=== PATIENT | female | born 1990 | race Caucasian/White ===

== ENCOUNTER 2017-10-05 13:39 | Emergency (ER) | payer OTHER ==
[2017-10-05 13:44] VITALS: BP 119/79; PULSE 80; TEMP 98.1; BMI 25.7
--- NOTE | 2017-10-05 15:35 | PDOC ---
Attending Attestation - Resident Resident Name: MarceloDanie - ED Attending Attestation I have performed the following: I have examined & evaluated the patient, The case was reviewed & discussed with the resident, I agree w/resident's findings & plan, Exceptions are as noted - HPI HPI: 10/05/17 15:50 27yo F 9+3 p/w suprapubic abd pain since yesterday morning. Pain is 7/10, a/w nausea but no emesis. No vaginal bleeding or DC. Denies dysuria, hematuria, frequency. Denies fevers/chills. Pt is followed by the [facility] where she had a normal US 4 weeks ago by her report. Denies chest pain, shortness of breath, palpitations. Denies flank pain. Denies lower extremity edema, headaches. - Physicial Exam PE: 10/05/17 16:04 GENERAL: Awake, alert, and fully oriented, in no acute distress HEAD: No signs of trauma EYES: PERRLA, EOMI, sclera anicteric, conjunctiva clear ENT: Auricles normal inspection, hearing grossly normal, nares patent, oropharynx clear without exudates. Moist mucosa NECK: Normal ROM, supple, no lymphadenopathy, JVD, or masses LUNGS: Breath sounds equal, clear to auscultation bilaterally. No wheezes, and no crackles HEART: Regular rate and rhythm, normal S1 and S2, no murmurs, rubs or gallops ABDOMEN: mild suprapubic ttp, normoactive bowel sounds. No guarding, no rebound. No masses COMPANION: agree with resident exam, fundus palpable below pubic symphasis. EXTREMITIES: Normal range of motion, no edema. No clubbing or cyanosis. No cords, erythema, or tenderness NEUROLOGICAL: Normal speech, cranial nerves intact, negative pronator drift, 5/ 5 strength in all 4 extremities, normal sensation to light touch in all 4 extremities, normal cerebellar exam, normal gait, normal reflexes and tone SKIN: Warm, Dry, normal turgor, no rashes or lesions noted. - Medical Decision Making 10/05/17 16:05 27-year-old female 9 weeks presents with suprapubic abdominal pain. Vitals are unremarkable. Likely threatened given pain however patient with no vaginal bleeding. Will obtain an ultrasound to evaluate for . Symptoms could also possibly be a UTI, will check urinalysis and urine culture. 10/05/17 16:43 Patient has been signed out to the oncoming evening attending for further evaluation and discharge.
--- NOTE | 2017-10-05 15:44 | PDOC ---
History of Present Illness - General Chief Complaint: Pain Stated Complaint: 9WKS,ABD PAIN Time Seen by Provider: 10/05/17 15:14 History Source: Patient - History of Present Illness Initial Comments: 10/05/17 15:38 27F A1 9W3D (last period July 31) presents with 7/10 non-stop cramping, stabbing pain since yesterday morning. No bloody discharge. Had an appointment 2 weeks ago at the ER in [facility] where she had bloodwork done due to hyperemesis gravidarum and another visit 4 weeks ago where an intrauterine was identified by ultrasound at the [facility]. Nausea for the past week but no vomiting for the past couple days. 10/05/17 16:17 10/05/17 16:48 Past History - Past Medical History Allergies/Adverse Reactions: Allergies Allergy/AdvReac Type Severity Reaction Status Date / Time No Known Allergies Allergy Verified 10/05/17 13:42 Home Medications: Ambulatory Orders NK [No Known Home Medication] 10/05/17 COPD: No - Reproductive History Is Patient Now?: No (#): 3 Para: 1 Cervical CA: No Dysfunctional Uterine Bleeding: No Ectopic : No Endometrial CA: No Polycystic Ovaries: No Therapeutic (s) & number: Yes (1) Tubal Ligation: No - Suicide/Smoking/Psychosocial Hx Smoking History: Never smoked Information on smoking cessation initiated: No Hx Alcohol Use: No Drug/Substance Use Hx: No Substance Use Type: None Review of Systems - Review of Systems Able to Perform ROS?: Yes Is the patient limited Indian proficient: Yes Constitutional: No: Symptoms Reported HEENTM: No: Symptoms Reported Respiratory: No: Symptoms reported Cardiac (ROS): No: Symptoms Reported ABD/GI: Yes: See HPI. No: Tarry Stools Musculoskeletal: No: Symptoms Reported Integumentary: No: Symptoms Reported Neurological: No: Symptoms reported Endocrine: No: Symptoms Reported Hematologic/Lymphatic: No: Symptoms Reported All Other Systems: Reviewed and Negative *Physical Exam - Vital Signs Last Vital Signs Temp Pulse Resp BP Pulse Ox 98.1 F 80 18 119/79 100 10/05/17 13:42 10/05/17 13:42 10/05/17 13:42 10/05/17 13:42 10/05/17 13:42 - Physical Exam General Appearance: Yes: Nourished, Appropriately Dressed, Mild Distress HEENT: positive: EOMI, DEL, Normal ENT Inspection Neck: negative: Tender Respiratory/Chest: positive: Lungs Clear, Normal Breath Sounds. negative: Chest Tender Cardiovascular: positive: Regular Rhythm, Regular Rate, S1, S2 Female Pelvic Exam: positive: normal external exam, cervical os closed, normal adnexa, normal size ovaries, discharge (physiological leukorrhea, uterine tenderness). negative: adnexal tenderness, vaginal bleeding Gastrointestinal/Abdominal: positive: Tender (suprapibic). negative: Normal Bowel Sounds Musculoskeletal: positive: Normal Inspection Extremity: positive: Normal Capillary Refill, Normal Inspection Integumentary: positive: Normal Color, Dry, Warm Neurologic: positive: Fully Oriented, Alert, Normal Mood/Affect, Motor Strength 03/19 ED Treatment Course - LABORATORY CBC & Chemistry Diagram: 10/05/17 15:58 10/05/17 15:58 Medical Decision Making - Medical Decision Making 10/05/17 16:48 27F A1 9W3D (last period July 31) presents with 7/10 non-stop cramping, stabbing pain suprapubic pain since yesterday morning BetaHcg drawn, will assess with transvaginal ultrasound. Pain controled with Tylenol. *DC/Admit/Observation/Transfer Diagnosis at time of Disposition: demise - Discharge Dispostion Disposition: HOME Admit: No - Referrals - Patient Instructions Printed Discharge Instructions: DI for Miscarriage, Dealing With Miscarriage Additional Instructions: Please follow up with your OBGYN clinic at [facility] as soon as possible Come back to the Emergency Room for any new, worsening or concerning symptom like fever, discharge of pus Print Language: PALAUAN - Post Discharge Activity
[2017-10-05 16:14] LABS: URINE APPEARANCE SLCLOUDY; URINE BILIRUBIN NEGATIVE (NEGATIVE); URINE BLOOD NEGATIVE (NEGATIVE); URINE COLOR YELLOW; URINE GLUCOSE (UA) NEGATIVE (NEGATIVE); URINE KETONE NEGATIVE (NEGATIVE); URINE NITRITE NEGATIVE (NEGATIVE); URINE PROTEIN NEGATIVE (NEGATIVE); URINE UROBILINOGEN NEGATIVE mg/dL (0.2-1.0)
[2017-10-05 16:17] LABS: BASOPHIL 0.4 % (0-2.0); EOSINOPHIL 0.7 % (0-4.5); MCH 25.1 pg (25.7-33.7); MCHC 32.2 g/dl (32.0-36.0); NEUTROPHILS 60.9 % (42.8-82.8); PLATELET COUNT 211 K/MM3 (134-434); RDW 19.8 % (11.6-15.6); WHITE BLOOD COUNT 6.4 K/mm3 (4.0-10.0)
[2017-10-05] MEDS ORDERED: ACETAMINOPHEN 1000 MG/100 ML VIAL (NON FORMULARY) IVPB ONE (16:41)
[2017-10-05] MEDS ORDERED: ACETAMINOPHEN 500 MG TABLET (FP) PO ONE (16:43)
[2017-10-05] MEDS ORDERED: ACETAMINOPHEN 325 MG TABLET (FP) ONE (16:45)
[2017-10-05 16:47] LABS: ALBUMIN 3.7 g/dl (3.4-5.0); ANION GAP 8 (8-16); CALCIUM 9.4 mg/dL (8.5-10.1); CO2 26 mmol/L (21-32); CREATININE 0.5 mg/dL (0.55-1.02); GLUCOSE,RANDOM 81 mg/dL (74-106); SGOT/AST 12 U/L (15-37); SGPT/ALT 17 U/L (12-78)
[2017-10-05 17:04] LABS: ALK PHOS 57 U/L (45-117); BILIRUBIN,TOTAL 0.5 mg/dL (0.2-1.0); TOT PROT 6.9 g/dl (6.4-8.2)
[2017-10-05 19:51] LABS: URINE LEUK ESTERASE Negative (NEGATIVE)
== END 2017-10-05 18:26 | disposition home or self-care (01) ==
LOC: JER 13:39
DX: O02.1 Missed abortion (principal); Z3A.09 9 weeks gestation of pregnancy
CPT/HCPCS: 36415; 76817-TC; 80053; 81003; 84702; 85025; 87086; 99283-25